=== PATIENT | male | born 1940 | race Caucasian/White ===

== ENCOUNTER → 2018-01-25 09:40 | Outpatient (CLI) | payer MEDICARE, OTHER, SELFPAY ==
--- NOTE | 2018-01-25 | DI.RAD.S_ITS ---
PROCEDURE: XR LUMBAR SPINE 2-3V INDICATIONS: LOW BACK PAIN TECHNIQUE: 3 views of the lumbar spine were acquired. COMPARISON: None. FINDINGS: Bones: 5 [id number] vertebrae are present. There is normal bony alignment. No vertebral body compression fractures. No suspicious bony lesions. Multilevel ankylosing spondylosis. Disc narrowing L5-S1 which could be physiological. There may be Soft tissues: Overlying bowel gas pattern is normal. No suspicious soft tissue calcifications. IMPRESSION: Multilevel ankylosing spondylosis Dictated by: Claude Xie M.D. on 01/25/2018 at 10:17 Approved by: Claude Xie M.D. on 01/25/2018 at 10:19
== END ==
PROVIDERS: Visit Provider Chiropractor
DX: M47.896 Other spondylosis, lumbar region (principal); M54.5 Low back pain
CPT/HCPCS: 72100

== ENCOUNTER → 2018-01-29 11:41 | Outpatient (CLI) | payer MEDICARE, OTHER, SELFPAY ==
--- NOTE | 2018-01-29 | DI.RAD.S_ITS ---
PROCEDURE: XR LUMBAR SPINE 2-3V INDICATIONS: BACK AND NECK PAIN TECHNIQUE: 2 views of the lumbar spine were acquired. COMPARISON: [facility], CR, XR LUMBAR SPINE 2-3V, 01/25/2018, 9:44. FINDINGS: Bones: Both obliques were obtained. No pars defects seen. Large hypertrophic spurs are present at the thoracolumbar junction. Apparent ligamentous calcifications from the transverse processes of L5 to the iliac crests bilaterally. Soft tissues: Overlying bowel gas pattern is normal. No suspicious soft tissue calcifications. IMPRESSION: Ankylosing spondylosis. No pars defects seen. Dictated by: Claude Xie M.D. on 01/29/2018 at 12:42 Approved by: Claude Xie M.D. on 01/29/2018 at 12:47
--- NOTE | 2018-01-29 | DI.RAD.S_ITS ---
PROCEDURE: XR CERVICAL SPINE 2V OR 3V INDICATIONS: BACK,NECK PAIN TECHNIQUE: 4 view(s) of the cervical spine were acquired. COMPARISON: None. FINDINGS: Bones: No fractures or dislocations to the C7 level. The lateral masses of C1 appear intact on the odontoid view. No suspicious bony lesions. Prominent anterior bone spurs at C4-5 with anterior ankylosis C5-C6 an additional spurs at C6-7. Disc spaces appear maintained. Soft tissues: No prevertebral soft tissue swelling. IMPRESSION: Anterior hypertrophic changes lower cervical spine. No fracture or, malalignment or apparent discopathy. Dictated by: Claude Xie M.D. on 01/29/2018 at 12:39 Approved by: Claude Xie M.D. on 01/29/2018 at 12:41
--- NOTE | 2018-01-29 | DI.RAD.S_ITS ---
PROCEDURE: XR THORACIC SPINE 3V INDICATIONS: BACK AND NECK PAIN TECHNIQUE: 4 views of the thoracic spine were acquired. COMPARISON: None. FINDINGS: Bones: No fractures or dislocations. No suspicious bony lesions. 12 pairs of ribs are noted, and appear intact where visualized. Prominent spondylosis is evident, ankylosing through most of the thoracic spine. Multilevel disc degeneration, some discs being calcified. Soft tissues: No paravertebral stripe thickening. IMPRESSION: 1. No acute osseous abnormality. 2. Ankylosing spondylosis. 3. Multilevel discopathy. Dictated by: Claude Xie M.D. on 01/29/2018 at 12:41 Approved by: Claude Xie M.D. on 01/29/2018 at 12:42
== END ==
PROVIDERS: Visit Provider Chiropractor
DX: M54.2 Cervicalgia (principal); M54.9 Dorsalgia, unspecified; M51.34 Other intervertebral disc degeneration, thoracic region; M47.892 Other spondylosis, cervical region; M47.894 Other spondylosis, thoracic region; M47.895 Other spondylosis, thoracolumbar region; M47.896 Other spondylosis, lumbar region
CPT/HCPCS: 72040; 72072; 72100